=== PATIENT | female | born 2000 | race Caucasian/White ===

== ENCOUNTER 2021-11-02 20:56 | Emergency (ER) | payer OTHER ==
[~2021-11-02] VITALS: Ht 160 cm; Wt 102.3 kg
[2021-11-02 21:16] VITALS: BP 126/81
== END 2021-11-02 22:44 | disposition home or self-care (01) ==
LOC: ER 20:57
DX: S83.004A Unspecified dislocation of right patella, initial encounter (principal); W19.XXXA Unspecified fall, initial encounter; Y93.89 Activity, other specified; Y92.89 Other specified places as the place of occurrence of the external cause; Y99.8 Other external cause status
CPT/HCPCS: 29530; 73564; 99284